=== PATIENT | female | born 1985 | race Caucasian/White ===

== ENCOUNTER 2017-09-25 20:58 | Emergency (ER) | payer OTHER, SELFPAY ==
[2017-09-25 21:07] VITALS: RESP 20
[2017-09-25 21:52] LABS: HCG,QUALITATIVE URINE NEGATIVE (NEGATIVE); SQUAMOUS EPITHIAL 13 /hpf (0-5); URINE BACTERIA OCC (<OCC); URINE BILIRUBIN NEGATIVE (NEGATIVE); URINE CLARITY Hazy (Clear); URINE COLOR Yellow (YELLOW); URINE GLUCOSE (UA) NORMAL (Normal); URINE LEUKOCYTE ESTERASE NEG Leu/uL (Negative); URINE PROTEIN NEGATIVE (NEGATIVE); URINE UROBILINOGEN NORMAL mg/dL (0.2-1.0)
[2017-09-25 21:53] LABS: URINE BLOOD 2+ (NEGATIVE)
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
[2017-09-26 00:35] VITALS: BP 113/70; PULSE 90; TEMP 98.9; O2SAT 98
== END 2017-09-26 00:44 | disposition home or self-care (01) ==
LOC: C.ER 20:58
DX: Z04.41 Encounter for examination and observation following alleged adult rape (principal)